=== PATIENT | male | born 1955 | race Caucasian/White ===

== ENCOUNTER 2023-04-07 13:56 | Emergency (ER) | payer OTHER ==
[2023-04-07 16:34] LABS: #Basophils 0.1 10x3/uL (0.0-0.2); #Eosinphils 0.1 10x3/uL (0.0-0.5); #Monocytes 1.3 10x3/uL (0.0-1.1); #Neutrophils 10.5 10x3/uL (1.5-8.4); %Basophils 0.9 % (0.0-2.0); %Eosinophils 0.5 % (0.0-6.0); %Lymphocytes 7.4 % (18.0-47.0); %Monocytes 9.7 % (0.0-10.0); %Neutrophils 80.5 % (40.0-75.0); Hematocrit 37.1 % (38.8-50.0); Hemoglobin 12.5 g/dL (13.5-17.5); Mean Corpuscular HGB CONC 33.7 g/dL (32.0-36.0); Mean Corpuscular Hemoglobin 32.5 pg (27.0-33.0); Mean Corpuscular Volume 96.4 fl (81.2-95.1); Mean Platelet Volume 10.3 fl (7.4-10.4); Platelet Count 312 10x3/uL (150-450); RBC Distribution Width 12.5 % (11.5-14.5); Red Blood Cell (RBC) Count 3.85 10x6/uL (4.32-5.72)
[2023-04-07 16:59] LABS: ALT (SGPT) 32 U/L (8-55); AST (SGOT) 27 U/L (5-34); Alkaline Phosphatase 73 U/L (40-110); Anion Gap 16 mmol/L (10-20); BUN (Urea Nitrogen) 26 mg/dL (8.4-25.7); Bilirubin, Total 0.7 mg/dL (0.2-1.2); Calc. Creatinine Clearance 0 mL/min (70-130); Calcium 9.3 mg/dL (7.8-10.44); Carbon Dioxide 27 mmol/L (22-29); Chloride 102 mmol/L (98-107); Estimated GFR 31; Globulin 2.9 g/dL (2.4-3.5); Glucose 123 mg/dL (70-105); Lipase 57 U/L (8-78); Magnesium 2.1 mg/dL (1.6-2.6); Potassium 4.1 mmol/L (3.5-5.1); Protein, Total 6.9 g/dL (6.0-8.3); Sodium 141 mmol/L (136-145)
[2023-04-07 17:05] LABS: Troponin I 0.028 ng/mL (< 0.028)
== END 2023-04-07 18:07 | disposition home or self-care (01) ==
LOC: CSHERS 13:56 → EDBD 13:56 → CSHERS 18:07
DX: R53.1 Weakness (principal); K04.7 Periapical abscess without sinus; I10 Essential (primary) hypertension; K21.9 Gastro-esophageal reflux disease without esophagitis; Z79.82 Long term (current) use of aspirin; Z79.899 Other long term (current) drug therapy
CPT/HCPCS: 70450; 71045; 80053; 83690; 83735; 83880; 84484; 85025; 93005